=== PATIENT | female | born 1985 | race Caucasian/White ===

== ENCOUNTER 2018-04-10 10:08 | Outpatient (CLI) | payer BC ==
[2018-04-10 11:57] LABS: BHCG - Serum Negative (NEGATIVE); Pregs Control Background? CLEAR/WHITE (CLR/WHITE); Pregs Control Bar Appear? YES (CONTROL BAR)
== END 2018-04-10 10:09 | disposition home or self-care (01) ==
LOC: LABBT 10:08
PROVIDERS: ATTEND Surgery
DX: Z01.818 Encounter for other preprocedural examination (principal); M79.9 Soft tissue disorder, unspecified
CPT/HCPCS: 84703

== ENCOUNTER 2018-04-23 08:29 | Day surgery (SDC) | payer BC ==
[2018-04-10 10:34] VITALS: BMI 35.6
[2018-04-23] MEDS ORDERED: CEFAZOLIN/Water 2 GM/20 ML SYRINGE ONE (10:37)
[2018-04-23] MEDS ORDERED: Fentanyl 100 MCG/2 ML VIAL ONE ×3 (10:58→12:37)
[2018-04-23] MEDS ORDERED: Bupivacaine/Epinephrine 0.25% 30 ML VIAL ONE (11:15)
[2018-04-23] MEDS ORDERED: PROPOFOL 200 MG/20 ML VIAL ONE (11:43)
[2018-04-23] MEDS ORDERED: Dexamethasone 20 MG/5 ML VIAL ONE (11:43)
[2018-04-23] MEDS ORDERED: Ketorolac Tromethamine 30 MG/ML VIAL ONE (11:43)
[2018-04-23] MEDS ORDERED: Ondansetron HCl/PF 4 MG/2 ML Vial ONE (11:43)
[2018-04-23] MEDS ORDERED: Glycopyrrolate 0.2 MG/ML 5 ML SYRINGE ONE (11:43)
[2018-04-23] MEDS ORDERED: Lidocaine 1% PF 5 ML VIAL ONE (11:43)
--- NOTE | 2018-04-25 08:51 | OP ---
DATE OF PROCEDURE: 04/23/2018. PREOPERATIVE DIAGNOSIS: Soft tissue mass, left flank. POSTOPERATIVE DIAGNOSIS: Soft tissue mass, left flank. PROCEDURE PERFORMED: Excision of soft tissue mass, left flank, 11.5 cm. SURGEON: Darek Hansen M.D. ANESTHESIA: General. ESTIMATED BLOOD LOSS: Minimal. COMPLICATIONS: None. SPECIMEN: Soft tissue mass. TECHNIQUE: The patient was taken to the operating room and placed supine on the table. After gener al anesthetic was obtained, the abdomen and left flank is prepped and draped in a sterile fashion. O nora the palpable abnormality, an incision is made. Cautery was used to raise flaps superomedially an d inferolaterally around these palpable soft tissue mass. It is removed and sent to path for final d iagnosis. It appears to be a benign lipoma. The wound is irrigated. Local anesthetic is applied. The wound was closed using 3-0 Vicryl, 4-0 Monocryl, and Dermabond. The patient was en route to [facility] in stable condition. All instrument counts, needle counts, lap counts are correct.
== END 2018-04-23 14:33 | disposition home or self-care (01) ==
LOC: SDC 08:29
PROVIDERS: ATTEND Surgery
PROC: 0JB70ZZ Excision of Back Subcutaneous Tissue and Fascia, Open Approach (ICD-10-PCS; principal; 2018-04-23)
DX: M79.89 Other specified soft tissue disorders (principal)
CPT/HCPCS: 88304; 96374; 96376; J1100; J1885; J2001; J2405; J2704; J3010

== ENCOUNTER 2019-01-30 17:39 | Emergency (ER) | payer BC ==
[2019-01-30 18:50] LABS: #Eosinphils 0.2 thou/uL (0.0-0.7); #Lymphocytes 2.9 thou/uL (1.20-3.40); #Monocytes 0.4 thou/uL (0.11-0.59); %Basophils 0.5 % (0.0-1.0); %Eosinophils 2.5 % (0.0-10.0); %Monocytes 5.7 % (0.0-10.0); %Neutrophils 53.3 % (42.0-75.0); Hemoglobin 13.2 g/dL (12.0-16.0); Mean Corpuscular HGB CONC 32.4 g/dL (32.0-36.0); Mean Corpuscular Hemoglobin 25.5 pg (27.0-31.0); Mean Corpuscular Volume 78.8 fL (78.0-98.0); Mean Platelet Volume 7.3 fL (7.4-10.4); Platelet Count 304 thou/uL (130-400); RBC Distribution Width 12.2 % (11.5-14.5); Red Blood Cell (RBC) Count 5.15 mill/uL (4.20-5.40); White Blood Cell (WBC) Count 7.5 thou/uL (4.8-10.8)
[2019-01-30 19:12] LABS: ALT (SGPT) 8 U/L (8-55); AST (SGOT) 12 U/L (5-34); Albumin 4.1 g/dL (3.5-5.0); Alkaline Phosphatase 55 U/L (40-150); Anion Gap 11 mmol/L (10-20); BUN (Urea Nitrogen) 11 mg/dL (7.0-18.7); Bilirubin, Total 0.2 mg/dL (0.2-1.2); Calc. Creatinine Clearance 0 mL/min (70-130); Calcium 9.4 mg/dL (7.8-10.44); Carbon Dioxide 31 mmol/L (22-29); Chloride 103 mmol/L (98-107); Estimated GFR-MDRD Greater than 90; Globulin 2.7 g/dL (2.4-3.5); Glucose 99 mg/dL (70-105); Potassium 3.9 mmol/L (3.5-5.1); Protein, Total 6.8 g/dL (6.0-8.3); Sodium 141 mmol/L (136-145)
--- NOTE | 2019-01-30 20:14 | CT ---
CT BRAIN WITHOUT CONTRAST: 01/30/19 HISTORY: Headache. FINDINGS: No evidence of acute infarct, hemorrhage, midline shift or abnormal extra-axial fluid collections are seen. Ventricular size is normal and the basilar cisterns patent. The bony calvarium is intact. Ther e is mucosal disease in the paranasal sinuses. IMPRESSION: 1. No CT evidence of acute intracranial process. 2. Paranasal sinus disease. POS: [facility]
[2019-01-30] MEDS ORDERED: Lorazepam 2 MG/ML VIAL ONE (23:34)
[2019-01-30] MEDS ORDERED: Lidocaine 1% (PF) 30 ML VIAL ONE (23:44)
[2019-01-31] MEDS ORDERED: Ondansetron PF 4 MG/2 ML Vial ONE (00:02)
[2019-01-31 00:37] LABS: Color Of CSF Supernatant COLORLESS (Colorless); Tube # 2; Unspun CSF Color COLORLESS (Colorless)
[2019-01-31 00:50] LABS: CSF, Glucose 56 mg/dl (40-70); CSF, Protein 18 mg/dL (15-40)
[2019-01-31 01:06] LABS: CSF Source CSF; Clarity Hazy (Clear); RBC Count - Manual 206 /cumm (None Seen); Tube # 1; WBC/NonHematics Count - Manual 2 /cumm (0-5)
[2019-01-31 01:13] LABS: CSF Source CSF; Clarity Clear (Clear); RBC Count - Manual 0 /cumm (None Seen); Tube # 4; WBC/NonHematics Count - Manual 2 /cumm (0-5)
== END 2019-01-31 01:36 | disposition home or self-care (01) ==
LOC: ERS 17:39
DX: R51 Headache (principal)
CPT/HCPCS: 36415; 62270; 70450; 80053; 82945; 84157; 85025; 89051; 96374; J2001; J2060; J2405

== ENCOUNTER 2019-03-20 10:58 | Outpatient (CLI) | payer BC | END 2019-03-20 10:59 | disposition home or self-care (01) | LOC: CTENTCT 10:58 | PROVIDERS: ATTEND Otolaryngology Plastic Surgery within the Head & Neck | DX: J32.9 Chronic sinusitis, unspecified (principal) | CPT/HCPCS: 70486 ==

== ENCOUNTER 2019-04-16 06:56 | Day surgery (SDC) | payer BC ==
[2019-04-15 12:23] VITALS: BMI 29.8
[2019-04-16] MEDS ORDERED: Oxymetazoline HCl 0.05% ( 15 ML ) ONE ×2 (08:42→09:44)
[2019-04-16] MEDS ORDERED: Lidocaine 1% w/Epinephrine 1:100K 20 ML VIAL ONE (09:44)
[2019-04-16] MEDS ORDERED: Midazolam HCl 2 mg/2 ml Vial ONE (09:47)
[2019-04-16] MEDS ORDERED: Fentanyl 100 MCG/2 ML VIAL ONE ×2 (09:47→11:04)
[2019-04-16] MEDS ORDERED: Ondansetron PF 4 MG/2 ML Vial ONE (10:45)
[2019-04-16] MEDS ORDERED: Promethazine HCl 25 MG/ML VIAL ONE (10:52)
--- NOTE | 2019-04-17 11:45 | OP ---
DATE OF PROCEDURE: 04/16/2019 PREOPERATIVE DIAGNOSES: 1. Chronic rhinosinusitis. 2. Bilateral inferior turbinate hypertrophy. 3. Nasal obstruction. 4. Left middle turbinate matt bullosa. POSTOPERATIVE DIAGNOSES: 1. Chronic rhinosinusitis. 2. Bilateral inferior turbinate hypertrophy. 3. Nasal obstruction. 4. Left middle turbinate matt bullosa. PROCEDURES PERFORMED: 1. Bilateral endoscopic sinus surgery, total ethmoidectomies. 2. Bilateral endoscopic sinus surgery, maxillary antrostomies. 3. Bilateral endoscopic sinus surgery, frontal sinusotomies. 4. Bilateral endoscopic sinus surgery, sphenoidotomies. 5. Bilateral inferior turbinate submucosal resection. ESTIMATED BLOOD LOSS: 50 mL. COMPLICATIONS: None. ANESTHESIA: GETA. DESCRIPTION OF PROCEDURE: The patient was taken to the operating room and placed supine on the table. General endotracheal anesthesia was obtained by the Anesthesia Staff. Tube was secured in the left lower lip. The patient was then placed in the beach chair position. Following this, a 0-degree endoscope was advanced into the middle meatus. A large middle turbinate matt bullosa was encountered on the left side. A vertical incision was made with a sickle knife on the anterior aspect of the middle turbinate. Following this, the lateral aspect of the left middle turbinate was then removed using the straight Blakesley forceps and the straight microdebrider. Following this, the middle turbinates were medialized and the uncinate process was visualized and was anteriorly fractured using a ball-ended probe bilaterally. Following this, the uncinate process was then removed using the upbiting Blakesley forceps and the curved microdebrider bilaterally. Following this, the natural maxillary sinus ostia was identified using a ball-ended probe and was then widened using the curved microdebrider and the straight Blakesley forceps bilaterally. Following this, the ethmoidal bulla was identified bilaterally and the 0-degree microdebrider was used to puncture the ethmoidal bulla on the medial and inferior aspect. Following this, the ethmoidal bulla was removed using the microdebrider and the upbiting Blakesley forceps bilaterally. Following this, the grand lamella was identified and was punctured into the posterior ethmoidal cells using the 0-degree microdebrider. Working from posterior to anterior, the ethmoidal cells were opened using the 0-degree curved microdebrider, and upbiting Blakesley forceps. Following this, the 45-degree endoscope was then used to visualize the frontal sinus recess, which was then widened using the curved microdebrider. The frontal sinus ostia were then identified bilaterally and was gently widened using the curved microdebrider bilaterally. Following this, the 0-degree endoscope was then advanced to the posterior nasal cavity staying just medial to the superior turbinates. The anterior wall of the sphenoid sinuses was identified bilaterally. The sphenoid sinus was punctured using a Sanchez tip suction bilaterally. Following this, the 0-degree microdebrider was then inserted into the sphenoidotomies and was widened medially and inferiorly bilaterally. Following this, the inferior turbinates were punctured on the anterior and inferior aspect of the submucosal microdebrider and submucosal resection was performed of the anterior and inferior aspect of the inferior turbinates bilaterally. Following this, the nasal cavity was irrigated. Mirapex was placed within the middle meatus. The patient tolerated the procedure well. Job ID: [id number]
== END 2019-04-16 12:45 | disposition home or self-care (01) ==
LOC: SDC 06:56
PROVIDERS: ATTEND Otolaryngology Plastic Surgery within the Head & Neck
PROC: 099W8ZZ Drainage of Right Sphenoid Sinus, Via Natural or Artificial Opening Endoscopic (ICD-10-PCS; principal; 2019-04-16)
PROC: 09TV8ZZ Resection of Left Ethmoid Sinus, Via Natural or Artificial Opening Endoscopic (ICD-10-PCS; principal; 2019-04-16)
PROC: 099T8ZZ Drainage of Left Frontal Sinus, Via Natural or Artificial Opening Endoscopic (ICD-10-PCS; principal; 2019-04-16)
PROC: 099Q8ZZ Drainage of Right Maxillary Sinus, Via Natural or Artificial Opening Endoscopic (ICD-10-PCS; principal; 2019-04-16)
PROC: 099X8ZZ Drainage of Left Sphenoid Sinus, Via Natural or Artificial Opening Endoscopic (ICD-10-PCS; principal; 2019-04-16)
PROC: 099R8ZZ Drainage of Left Maxillary Sinus, Via Natural or Artificial Opening Endoscopic (ICD-10-PCS; principal; 2019-04-16)
PROC: 09TU8ZZ Resection of Right Ethmoid Sinus, Via Natural or Artificial Opening Endoscopic (ICD-10-PCS; principal; 2019-04-16)
PROC: 099S8ZZ Drainage of Right Frontal Sinus, Via Natural or Artificial Opening Endoscopic (ICD-10-PCS; principal; 2019-04-16)
PROC: 09TL0ZZ Resection of Nasal Turbinate, Open Approach (ICD-10-PCS; principal; 2019-04-16)
DX: J32.9 Chronic sinusitis, unspecified (principal); J34.2 Deviated nasal septum; J34.3 Hypertrophy of nasal turbinates; J34.89 Other specified disorders of nose and nasal sinuses; J30.1 Allergic rhinitis due to pollen; J30.81 Allergic rhinitis due to animal (cat) (dog) hair and dander; Z79.2 Long term (current) use of antibiotics; Z79.899 Other long term (current) drug therapy; Z98.890 Other specified postprocedural states
CPT/HCPCS: 85014; J0131; J2001; J2250; J2405; J2550; J3010

== ENCOUNTER 2019-08-18 13:23 | Outpatient (CLI) | payer BC ==
--- NOTE | 2019-08-18 14:33 | ULT ---
LEFT BREAST ULTRASOUND: HISTORY: The patient feels a thickening in the left breast at the 3 o'clock position. FINDINGS: Real-time imaging of this area failed to show any cystic or solid lesion. IMPRESSION: BI-RADS category 2 - benign findings. POS: [facility]
--- NOTE | 2019-08-18 14:44 | MMO ---
Bilateral MAMMO Bilat Diag [facility]. CLINICAL HISTORY: Patient is 34 years old and is seen for diagnostic exam,lump or thickening in the outer region of the left breast and pain in the outer region of the left breast. The patient has the following family history of breast cancer: mother and maternal grandmother. The patient has no personal history of cancer. VIEWS: The views performed were: bilateral craniocaudal with tomosynthesis; bilateral mediolateral oblique with tomosynthesis; and bilateral mediolateral with tomosynthesis. FILMS COMPARED: The present examination has been compared to prior imaging studies performed at This study has been interpreted with the assistance of computer-aided detection. MAMMOGRAM FINDINGS: There are scattered fibroglandular densities. No mammographic or sonograhic abnormality is seen at the site of palpable concern in the left breast. There are no suspicious masses, suspicious calcifications, or new areas of architectural distortion. IMPRESSION: THERE IS NO MAMMOGRAPHIC EVIDENCE OF MALIGNANCY. A ROUTINE FOLLOW-UP MAMMOGRAM AT AGE 40 IS RECOMMENDED. THE RESULTS OF THIS EXAM WERE SENT TO THE PATIENT. ACR BI-RADS Category 2 - Benign finding MAMMOGRAPHY NOTE: 1. A negative mammogram report should not delay a biopsy if a dominant of clinically suspicious mass is present. 2. Approximately 10% to 15% of breast cancers are not detected by mammography. 3. Adenosis and dense breasts may obscure an underlying neoplasm. Reported by: KINA SORENSEN MD Electonically Signed: [id number]
== END 2019-08-18 13:24 | disposition home or self-care (01) ==
LOC: BICMAMMO 13:23
PROVIDERS: ATTEND Student in an Organized Health Care Education/Training Program
DX: N64.4 Mastodynia (principal); Z80.3 Family history of malignant neoplasm of breast
CPT/HCPCS: 77066; G0279